=== PATIENT | male | born 1990 | race Caucasian/White ===

== ENCOUNTER 2023-10-13 07:59 | Outpatient (RCR) | payer OTHER, SELFPAY ==
--- NOTE | 2023-09-30 08:28 | PCPTNOTE ---
pt did not show for eval appt this date.
--- NOTE | 2023-10-13 08:55 | OPREHPOC ---
Outpatient Therapy Plan of Care This is a Multidisciplinary Plan of Care that may contain components documented by all disciplines (PT, OT, and ST.) PT Problem 1 PT Problem #1 Knowledge Deficit PT Goal 1 Goal *indep with HEP *correct posture with exercises Target Visit 6 PT Problem 2 PT Problem #2 Pain PT Goal 1 Goal 1* pt report pain of 2/10 at worst with increased activity level 2* self assessment Quick DASH rating of 6% limitation in activity level Target Visit 6 PT Problem 3 PT Problem #3 Impaired Flexibility PT Goal 1 Goal active ROM of L shoulder, to improve use of L arm with work and home tasks: standing motion: 1* flexion 140' 2* abduction 140' Target Visit 6 PT Problem 4 PT Problem #4 Impaired Strength PT Goal 1 Goal increase strength of L shoulder, to return to full work and home activities: 1* pt report return to full 8 hour work day standing L shoulder 10 reps with hand weight 2* flexion to 90' with 8# 3* flexion overhead with 5# 4* abduction to 90' with 5# 5* abduction overhead with 4#
--- NOTE | 2023-10-13 08:55 | PTOPEVAL1 ---
Assessment and note entered by Dorcas Rosario, PT Evaluation Information Assessment Status Evaluation Diagnosis s/p L acromial end of clavicle Onset Jul 09, 2023 Subjective Information surfing on vacation, crashed and instant pain; initially had sling for L arm ~ 2 months, then removed and starting to move arm some; now- no restrictions per pt; pt is R hand dominant problems with using L arm overhead and reaching to back to scratch and lifting/strength of L arm Activity: work laying bricks; is currently working- taking is easier 6-8 hours of work; usual work schedule is 8 hour/day for 30 hr week total; Reported Pain Level Pain Score Self Report Additional Pain Score Comments pain range in the past week 0-3/10; top of L shoulder--muscle and joint pain; increase pain: use L arm more decrease pain: rest not taking any pain meds; is not using heat or ice--instruct on use of ice 10-15 min after work or using arm more; sleeping is OK Assessment PT Clinical Summary Gamaliel is s/p L distal clavicle fracture/ non surgical. 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 He is R hand dominant. Self assessment functional score of 14% limitation in activity. With the evaluation: he has decreased ROM of shoulder flexion and abduction, with decreased strength of L shoulder; rounded posture of shoulders and forward rotation of R trunk and shoulder. Skilled PT services are indicated to increase ROM and strength of L shoulder, to be able to return to full work and self care duties, without pain increase, to include modalities as needed for pain and education for HEP and posture/assembler body education. Plan of Care Interventions Electrical Stimulation,Hot Pack/Cold Pack,Manual Therapy,Patient Education,Therapeutic Activities,Ther
--- NOTE | 2023-10-15 15:51 | PCPTNOTE ---
Pt no showed visit today.
--- NOTE | 2023-10-20 16:02 | PCPTNOTE ---
Pt no showed 2nd visit today.
--- NOTE | 2023-10-22 15:54 | PCPTNOTE ---
Pt no showed for third visit.
--- NOTE | 2023-10-26 16:14 | PCPTNOTE ---
Pt no showed visit today.
--- NOTE | 2023-11-05 13:47 | PTOPDC ---
Assessment and note entered by Dorcas Rosario, PT Discharge Information Assessment Status Discharge - Pt Not Present Diagnosis s/p L acrominal end of clavicle Onset Jul 09, 2023 Subjective Information pt was not seen this date. Assessment PT Clinical Summary Gamaliel attended the PT evaluation on October 12, then did not show for the following 4 scheduled appointments. Discharge PT. The goals were not addressed. Plan of Care PT Services Indicated No
== END 2023-11-05 14:26 | disposition home or self-care (01) ==
LOC: ANHPT 07:59
PROVIDERS: Visit Provider Physician Assistant
DX: S42.032D Displaced fracture of lateral end of left clavicle, subsequent encounter for fracture with routine healing (principal)
CPT/HCPCS: 97110; 97161; 97530; 99199

== ENCOUNTER 2025-03-07 14:36 | Emergency (ER) | payer SELFPAY ==
--- NOTE | ~2025-03-07 | CT_ITS ---
EXAMINATION: CT brain wo con COMPARISON: None HISTORY: trauma TECHNIQUE: Axial images were obtained through the brain without IV contrast. CT scan performed using dose optimization techniques including the following automated exposure control; adjustment of mA and/or kV; use of iterative reconstruction technique. Automatic exposure control was used to reduce radiation dose. Permanent radiation dose record is archived to PACS. FINDINGS: No acute infarct or parenchymal hemorrhage. No abnormal mass or mass effect. No midline shift. No extra-axial fluid collections. No hydrocephalus. . Mastoid air cells unremarkable. Severe left maxillary sinusitis with underlying polyp formation suspected. No acute fracture. No significant facial or scalp soft tissue swelling evident. No radiopaque foreign body is seen. Impression: 1.No acute intracranial abnormality. Reviewed, dictated and finalized at location P. Impression: 1.No acute intracranial abnormality.
--- OUTSIDE RECORDS SUMMARY | 2025-03-07 14:41 | XMS_ITS | Clinical Summary ---
Author Organization [facility] Address [facility] [place] [address] Care Team Providers Care Advertising Sales Executive Name Role Phone Unavailable Primary Care Provider Unavailabl e Social History Tobacco Use Types Packs/Day Years Used Date Smoking Tobacco: Never Assessed Sex and Gender Information Value Date Recorded Sex Assigned at Not on file Legal Sex Male 5:47 PM CDT Gender Identity Not on file Sexual Orientation Not on file Plan of Treatment Health Maintenance Due Date Last Done Comments Annual Physical 1992 Hepatitis C 09/07/2007 DTaP, Tdap and Td Vaccines ( 1 - Tdap) 2008 Hepatitis B Vaccines (1 of 3 - 19+ 3-dose series) 2008 HPV Vaccines (1 - 3-dose SCD M series) 2016 COVID-19 Vaccine (2023-2 5 season) 2025 Meningococcal B Vaccine Aged Out No l onger eligible based on patient's age to complete this topic Meningococcal Vaccine Aged Out No aidan louis eligible based on patient's age to complete this topic Pneumococcal Vaccine: Pediat rics (0 to 5 Years) and At-Risk Patients (6 to 49 Years) Aged Out No longer eligible b ased on patient's age to complete this topic RSV Immunizations Under 20 Months Aged Out No longer eligible based on patient's age to complete this topic
--- OUTSIDE RECORDS SUMMARY | 2025-03-07 14:41 | XMS_ITS | Clinical Summary ---
Author Organization [facility] Address [facility] [place] [address] Care Team Providers Care Director Of Security Name Role Phone Jonatan Mckinley MD Primary Care Provider [phone] Allergies Active Allergy Reactions Criticality Noted Date Comments Amoxicillin Hives Medium Medications HYDROcodone-acet aminophen (NORCO) 5-325 mg per tablet Take 1 tablet by mouth every 4 (four) hours as needed for pain 07/10/2023 Active ibuprofen (ADVIL,MOTRIN) 400 mg tablet Take by mouth every 6 (six) hours as needed for pain Active Active Problems Problem Noted Date Diagnosed Date Injury of head 08/27/2010 Family History Medical History Relation Name Comments Cancer Other Diabetes Other Kidney disease Other Relation Name Status Comments Other Social History Tobacco Use Types Packs/Day Years Used Date Smoking Tobacco: Every Day Cigarettes Vaping Tobacco Cessation:Ready to Q uit: Not Asked; Counseling Given: Not Answered Personal Safety Answer Date Recorded Getting School Help Needed Not on file 07/13 Sex and Gender Information Value Date Recorded Sex Assigned at Not on file 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 Gender Identity Not on file Sexual Orientation Not on file Obstetrics History Last Filed Vital Signs Vital Sign Reading Time Taken Comments Blood Pressure 130/74 09/08/2023 1:16 PM CDT Pulse 72 09/08/2023 1:16 PM CDT Temperature 36.8 C (98.2 F) 01/13/2019 6:13 PM CDT Respiratory Rate - - Oxygen Saturation 99% 01/13/2019 6:13 PM CDT Inhaled Oxygen Concentration - - Weight 72.3 kg (159 lb 6.4 oz) 09/08/2023 1:16 P M CDT Height 177.8 cm (5' 10) 09/08/2023 1:16 PM CDT Body Mass Index 22.87 09/08/2023 1:16 PM CDT Plan of Treatment Health Maintenance Due Date Last Done Comments Depression Screening 1989 Hepatitis C Screening 1989 DTaP/Tdap/Td Vaccine (1 - Tdap) 2000 Varicella Vaccines (1 of 2 - 13+ 2-dose series) 2002 Hepatitis B Screening 09/07/2007 Regular Well Visit/Exam 18-64 09/07/2007 Pneumococcal vaccine <65 (1 of 2 - PCV) 2008 HPV Vaccines (1 - 3-dose SCDM series) 2016 Influenza Vaccine (#1) 2025 Insurance [facility] Care Teams Director Of Security Relationship Specialty Start Date End Date Jonatan Mckinley MD PCP - General Family Medicine 01/05/19
[2025-03-07 14:58] VITALS: BP 129/76; PULSE 81; RESP 16; TEMP 36.9; O2SAT 99
--- NOTE | 2025-03-07 16:02 | PC.NURSE ---
Pt stated that the stone veneers that fell about 7 feet above his head. 10 pieces at least weighing about 5-15lbs a piece
--- NOTE | 2025-03-07 16:19 | ED.GENADULT ---
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 Patient states he was wearing a baseball cap at the time but did have bleeding from the posterior scalp. Patient denies any loss of consciousness. Patient is unsure when his last tetanus date was. Patient denies any other pain or injury. Patient denies any facial injury denies any neck or back pain. Patient denies any associated numbness or weakness. Related Data Allergies Allergy/AdvReac Type Severity Reaction Status Date / Time Penicillins Allergy Mild RASH Verified 03/07/25 14:38 Review of Systems Review of Systems: All systems reviewed & are unremarkable except as noted in HPI and below Exam Narrative: APPEARANCE: Well appearing, no pain, no distress, well-nourished. HEAD: normocephalic, multiple scalp contusions. EYES: PERRLA/EOMI, conjunctivae clear. NOSE: Normal no drainage EARS:TMS clear with good light reflex. THROAT: Pharynx clear, no exudate. NECK: Supple. No adenopathy, no masses. RESPIRATORY: Airway patent, respirations nonlabored. Clear to auscultation bilaterally, no rales, rhonchi, wheezing. CARDIOVASCULAR: Regular rate and rhythm without murmurs rubs or gallops. ABDOMINAL: Soft, nontender, nondistended, normal bowel sounds MUSCULOSKELETAL: Moves all extremities. Strength/ROM intact, No edema, No calf tenderness. NEURO: Alert. Cranial nerves II through XII intact. Good gait. Good coordination SKIN: Warm, dry. Normal Color Course Vital Signs Vital signs: Vital Signs Temperature 98.4 F 03/07/25 14:58 Pulse Rate 81 03/07/25 14:58 Respiratory Rate 16 03/07/25 14:58 Blood Pressure 129/76 03/07/25 14:58 Pulse Oximetry 99 03/07/25 14:58 Oxygen Delivery Room Air 03/07/25 14:58 Temperature 98.4 F 03/07/25 14:58 Pulse Rate 81 03/07/25 14:58 Respiratory Rate 16 03/07/25 14:58 Blood Pressure 129/76 03/07/25 14:58 Pulse Oximetry 99 03/07/25 14:58 Oxygen Delivery Room Air 03/07/25 14:58 Procedures Laceration Laceration 1: Site: scalp Size (cm): 3 Description: irregular Depth: simple, single layer Pre-repair: wound explored and irrigated ====== Skin Level ====== Skin layer closed with: drake Number of sutures: 3 ====== Subcutaneous Layer ====== ====== Muscle Layer ====== ====== Tendon Layer ====== Laceration 2: Site: scalp Size (cm): 2 Pre-repair: wound explored and irrigated ====== Skin Level ====== Skin layer closed with: drake Number of sutures: 2 ====== Subcutaneous Layer ====== ====== Muscle Layer ====== ====== Tendon Layer ====== Laceration 3: Site: scalp Size (cm): 1 ====== Skin Level ====== Skin layer closed with: drake Number of sutures: 1 ====== Subcutaneous Layer ====== ====== Muscle Layer ====== ====== Tendon Layer ====== Laceration 4: Site: scalp Size (cm): 1 Depth: simple, single layer Pre-repair: wound explored, irrigated and irrigated extensively ====== Skin Level ====== Skin layer closed with: darke Number of sutures: 1 ====== Subcutaneous Layer ====== ====== Muscle Layer ====== ====== Tendon Layer ====== Medical Decision Making MDM Narrative Medical decision making narrative: 34-year-old male presents emergency department for evaluation for multiple head injuries. Patient's laceration sore stapled described in a position of. Head CT was negative for acute intracranial abnormality. Patient denies any other pain or injury. All questions concerns were addressed patient was well-appearing at time of discharge. Patient's tetanus was updated patient was discharged home on antibiotics. Differential Diagnosis Differential Diagnosis: Laceration, contusion, hematoma, skull fracture, subdural hematoma subarachnoid Vital Signs Vital Signs: Vital Signs Temperature 98.4 F 03/07/25 14:58 Pulse Rate 81 03/07/25 14:58 Respiratory Rate 16 03/07/25 14:58 Blood Pressure 129/76 03/07/25 14:58 Pulse Oximetry 99 03/07/25 14:58 Oxygen Delivery Room Air 03/07/25 14:58 Temperature 98.4 F 03/07/25 14:58 Pulse Rate 81 03/07/25 14:58 Respiratory Rate 16 03/07/25 14:58 Blood Pressure 129/76 03/07/25 14:58 Pulse Oximetry 99 03/07/25 14:58 Oxygen Delivery Room Air 03/07/25 14:58 Discharge Plan Discharge Clinical Impression: Closed head injury, Laceration of scalp Patient Disposition: Home Condition: Stable Instructions: Antibiotic Form, Staple Care (ED) Additional Instructions: Sutures need to be removed in 7-10 days. Antibiotic as directed until completed. Have close follow-up with primary care physician. Patient Language: Upper Sorbian Prescriptions: New cephalexin 500 mg tablet 500 mg PO Q12H 7 Days Qty: 14 0RF Follow-up/Referrals: PHYSICIAN,QUALITY CONTROL ENGINEERING TECHNICIAN [Primary Care Provider, Internal Medicine]
[2025-03-07] MEDS: HYDROcodone/acetaminophen (*CRX) 7.5-325 MG TABLET 1 TAB PO (16:30)
[2025-03-07] MEDS: TETANUS,DIPHTHERIA,AC PERTUSSIS ADULT (0.5 ML) BOOSTRIX IM (16:31)
--- NOTE | 2025-03-07 16:42 | PC.NURSE ---
Pt has 4 visible injuries to the right side of his head. The one near his forehead seems like it is just superficial. The occipital one is about 3 cm. There is a temporal laceration that is about 2 cm. There is also one on the very top of his head and the wound is larger than the laceration which seems as if it is a puncture wound.
[2025-03-07] MEDS: CEPHALEXIN 500 MG CAPSULE PO (17:37)
== END 2025-03-07 17:40 | disposition home or self-care (01) ==
PROVIDERS: Emergency Provider Emergency Medicine
DX: S01.01XA Laceration without foreign body of scalp, initial encounter (principal); Z23 Encounter for immunization; W20.8XXA Other cause of strike by thrown, projected or falling object, initial encounter
CPT/HCPCS: 12002; 70450; 90471; 90715; 99284; A9270